=== PATIENT | male | born 2000 | race Caucasian/White ===

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

== ENCOUNTER 2022-10-19 00:21 | Emergency (ER) | payer MEDICAID ==
[~2022-10-19] VITALS: Ht 165.1 cm; Wt 68.0 kg
[~2022-10-19 00:21] MED LIST changes: -IBUP100T38; +IBUP100T61
[2022-10-19] MEDS ORDERED: KETOROLAC 30MG/ML VIAL IM ONE (03:30)
[2022-10-19] MEDS ORDERED: BACITRACIN ZINC OINT UDPKT TOP ONE (03:30)
[2022-10-19] MEDS ORDERED: LIDOCAINE HCL/PF 1% 10 MG/ML 5ML VIAL INFIL ONE (03:30)
[2022-10-19] MEDS ORDERED: TETANUS, DIPHTHERIA, PERTUSSIS VAC/PF 0.5ML (>10YR OLD) IM ONE (03:30)
[2022-10-19 03:57] VITALS: BP 128/61
[2022-10-19] MEDS ORDERED: AMOX1TAB16 MT (04:03)
[2022-10-19] MEDS ORDERED: NAPR375T5 MT (04:03)
== END 2022-10-19 05:29 | disposition home or self-care (01) ==
LOC: ER 00:21
DX: L60.0 Ingrowing nail (principal)
CPT/HCPCS: 11730; 90471; 90715; 96372; 99284; J1885; Z7610; 11732